=== PATIENT | female | born 1935 | race Caucasian/White ===

== ENCOUNTER 2017-09-25 18:58 | Inpatient (IN) ==
[2017-09-25] MEDS ORDERED: 0.9 % Sodium Chloride 1,000 ML IVC ONE (19:45)
[2017-09-25] MEDS ORDERED: Isovue-370 500 ML INFUS..BTL IV ONE (19:50)
--- NOTE | 2017-09-25 19:53 | Emergency Department Note ---
Disposition Clinical Impression: Cholecystitis Abdominal pain Qualifiers: Abdominal location: upper abdomen, unspecified Qualified Code(s): R10.10 - Upper abdominal pain, unspecified Leukocytosis Qualifiers: Leukocytosis type: unspecified Qualified Code(s): D72.829 - Elevated white blood cell count, unspecified Disposition: Admitted As Inpatient Condition: Undetermined Referrals: NONE,PCP [Primary Care Provider] - Forms: ED Satisfaction Letter Time of Disposition: 23:19 General Adult HPI - General Chief complaint: ED Nausea/Vomiting/Diarrhea Stated complaint: Possible Bowel Obstruction Time Seen by Provider: 09/25/17 19:38 Source: patient, family Mode of arrival: ambulatory Limitations: no limitations Nursing Notes Reviewed: Yes Vital Signs Reviewed: Yes - History of Present Illness HPI Narrative: 82-year-old female no previous medical history arrives to the emergency department with concern for possible bowel obstruction. The patient has a history of ventral hernia as well as umbilical hernia and states that over the course the past 2 days she has been experiencing midline worsening pain and states that she is having a large amount of pain associated with it with nausea , vomiting. Yesterday she was passing gas but she is no longer passing gas at this time. Patient states this also happened a few days prior to that. But it resolved spontaneously. The patient denies any other specific complaints at this time. She is tachycardic with a heart rate that is ranging from 105 into the 150s. Patient has no shortness of breath. The patient does have some palpitation sensation. She denies any previous history of any cardiac abnormalities in the past. She is resting comfortably in the room and is alert and oriented. Pain Scale: 0 - Related Data Home Medications Medication Instructions Recorded Confirmed Aspirin [Lo-Dose Aspirin EC] 81 mg PO DAILY 11/16/16 11/16/16 Previous Rx's Medication Instructions Recorded OxyCODONE/APAP 5/325 [Percocet 1 each PO Q6HR PRN #50 tablet 11/16/16 5/325 MG] Allergies Allergy/AdvReac Type Severity Reaction Status Date / Time codeine AdvReac Chest Pain Verified 11/16/16 08:51 All systems ED: reviewed and negative except as stated. Constitutional: Reports: weakness. Denies: fever, chills ENT ED: Denies: congestion Cardiovascular: Reports: palpitations. Denies: chest pain Respiratory: Denies: dyspnea Gastrointestinal: Reports: abdominal pain, nausea, vomiting, constipation. Denies: diarrhea, hematemesis, melena, hematochezia Neurological: Denies: headache, confusion Past Medical History - Past Medical History Attestation: Yes The following information was validated with the patient. Source: patient Medical history: Reports: cancer Surgical history: Reports: non-contributory Psychiatric history: Reports: no psych history - Social History Smoking Status: Never smoker Smokeless Tobacco Status: No Alcohol use: Reports: rarely Drug use: Reports: none Physical Exam - General Limitations: no limitations General appearance: alert, in no apparent distress - Head Head exam: atraumatic, normocephalic, normal inspection - Eye Eye exam: Present: normal appearance, PERRL, EOMI - ENT ENT exam: normal exam, normal oropharynx, mucous membranes moist - Neck Neck exam: Present: normal inspection, full ROM, trachea midline - Chest Chest inspection: Present: normal inspection, symmetric chest wall rise - Respiratory Respiratory exam: Present: normal lung sounds bilaterally - Cardiovascular Cardiovascular exam: Present: tachycardia, irregular rhythm, normal heart sounds - Abdominal Exam Abdominal exam: Present: soft, tenderness (Periumbilical), hernia. Absent: distention, guarding, rebound, rigidity, Keene's sign, Rovsing's sign, tenderness at McBurney's Point - Extremities Exam Extremities exam: Present: normal inspection, full ROM. Absent: tenderness, pedal edema - Neurological Exam Neurological exam: Present: alert, oriented X3 - Skin Skin exam: Present: warm, dry, intact, normal color Course Vital Signs Temperature 98.6 F 09/25/17 18:59 Pulse Rate 155 09/25/17 18:59 Respiratory Rate 18 09/25/17 18:59 Blood Pressure 142/71 09/25/17 18:59 O2 Sat by Pulse Oximetry 96 09/25/17 18:59 Temperature 98.6 F 09/25/17 18:59 Pulse Rate 114 09/25/17 22:39 Respiratory Rate 22 09/25/17 22:39 Blood Pressure 123/76 09/25/17 22:39 O2 Sat by Pulse Oximetry 97 09/25/17 22:39 Oxygen Delivery Oxygen Delivery Room Air Medical Decision Making - Lab Data Result diagrams: 09/25/17 20:20 09/25/17 20:20 Lab Results 09/25/17 09/25/1718 Range/Units 19:57 20:20 20:20 WBC 24.3 H (4.3-11.1) K/mcL RBC 4.83 (3.82-4.97) M/mcL Hgb 13.9 (11.5-15.4) g/dL Hct 41.8 (35.3-44.9) % MCV 86.5 (83.0-100.0) fL MCH 28.8 (28.0-33.3) pg MCHC 33.3 (31.6-35.5) g/dL RDW 13.5 (11.5-14.5) % Plt Count 169 (140-400) K/mcL MPV 10.4 (9.4-12.4) fL Immature Gran % 1.2 (0-4) % Seg Neutrophils % 84.7 % Lymphocytes % 6.3 % Monocytes % 7.6 % Eosinophils % 0.0 % Basophils % 0.2 % Neutrophils # 20.6 H (1.6-8.9) K/mcL Lymphocytes # 1.5 (0.6-4.6) K/mcL Monocytes # 1.8 H (0.0-1.3) K/mcL Eosinophils # 0.0 (0.0-0.6) K/mcL Basophils # 0.0 (0.0-0.2) K/mcL Sodium 131 L (136-145) mEq/L Potassium 3.8 (3.5-5.1) mEq/L Chloride 96 L (98-107) mEq/L Carbon Dioxide 22 L (23-29) mEq/L BUN 16 (8-23) mg/dL Creatinine 0.98 (0.60-1.20) mg/dL Est GFR ( Amer) > 60 (> 60) Est GFR (Non-Af Amer) 55 L (> 60) BUN/Creatinine Ratio 16 (6-26) Glucose 152 H (70-105) mg/dL Calculated Osmolality 276 L (280-300) Lactic Acid (0.5-2.2) mmol/L Calcium 9.2 (8.6-10.3) mg/dL Total Bilirubin 1.6 H (0.3-1.0) mg/dL Direct Bilirubin 0.5 H (0.0-0.2) mg/dL Indirect Bilirubin 1.1 (0.0-1.2) mg/dL AST 12 L (13-39) Units/L ALT 15 (7-52) Units/L Alkaline Phosphatase 105 H (34-104) Units/L Troponin I (< 0.04) ng/mL Serum Total Protein 6.8 (6.4-8.9) g/dL Albumin 3.8 (3.5-5.7) g/dL Globulin 3.0 (2.4-3.5) g/dL Albumin/Globulin Ratio 1.3 (1.1-2.2) Lipase < 3 L (11-82) Units/L Urine Color Yellow (Yellow) Urine Clarity Clear (Clear) Urine pH 6.0 (5.0-8.0) pH Units Ur Specific [place] 1.016 (1.010-1.025) Urine Protein Trace (Neg-Trace) mg/dL Urine Glucose (UA) Normal (Normal) mg/dL Urine Ketones Negative (Negative) mg/dL Urine Blood Negative (Negative) Urine Nitrite Negative (Negative) Urine Bilirubin Negative (Negative) Urine Urobilinogen Normal (Normal) mg/dL Ur Leukocyte Esterase Moderate H (Negative) Urine Microscopic RBC 3-5 H (0-3) per hpf Urine Microscopic WBC 5-15 H (0-3) per hpf Ur Squamous Epith Cells Moderate H (None-Few) per lpf Urine Bacteria None Seen (None-Few) per hpf Hyaline Casts None Seen (None-Few) per lpf Ur Culture Indicated? YES A (NO) 09/25/17 09/25/17 Range/Units 20:20 21:20 WBC (4.3-11.1) K/mcL RBC (3.82-4.97) M/mcL Hgb (11.5-15.4) g/dL Hct (35.3-44.9) % MCV (83.0-100.0) fL MCH (28.0-33.3) pg MCHC (31.6-35.5) g/dL RDW (11.5-14.5) % Plt Count (140-400) K/mcL MPV (9.4-12.4) fL Immature Gran % (0-4) % Seg Neutrophils % % Lymphocytes % % Monocytes % % Eosinophils % % Basophils % % Neutrophils # (1.6-8.9) K/mcL Lymphocytes # (0.6-4.6) K/mcL Monocytes # (0.0-1.3) K/mcL Eosinophils # (0.0-0.6) K/mcL Basophils # (0.0-0.2) K/mcL Sodium (136-145) mEq/L Potassium (3.5-5.1) mEq/L Chloride (98-107) mEq/L Carbon Dioxide (23-29) mEq/L BUN (8-23) mg/dL Creatinine (0.60-1.20) mg/dL Est GFR ( Amer) (> 60) Est GFR (Non-Af Amer) (> 60) BUN/Creatinine Ratio (6-26) Glucose (70-105) mg/dL Calculated Osmolality (280-300) Lactic Acid 2.3 H (0.5-2.2) mmol/L Calcium (8.6-10.3) mg/dL Total Bilirubin (0.3-1.0) mg/dL Direct Bilirubin (0.0-0.2) mg/dL Indirect Bilirubin (0.0-1.2) mg/dL AST (13-39) Units/L ALT (7-52) Units/L Alkaline Phosphatase (34-104) Units/L Troponin I 0.03 (< 0.04) ng/mL Serum Total Protein (6.4-8.9) g/dL Albumin (3.5-5.7) g/dL Globulin (2.4-3.5) g/dL Albumin/Globulin Ratio (1.1-2.2) Lipase (11-82) Units/L Urine Color (Yellow) Urine Clarity (Clear) Urine pH (5.0-8.0) pH Units Ur Specific [place] (1.010-1.025) Urine Protein (Neg-Trace) mg/dL Urine Glucose (UA) (Normal) mg/dL Urine Ketones (Negative) mg/dL Urine Blood (Negative) Urine Nitrite (Negative) Urine Bilirubin (Negative) Urine Urobilinogen (Normal) mg/dL Ur Leukocyte Esterase (Negative) Urine Microscopic RBC (0-3) per hpf Urine Microscopic WBC (0-3) per hpf Ur Squamous Epith Cells (None-Few) per lpf Urine Bacteria (None-Few) per hpf Hyaline Casts (None-Few) per lpf Ur Culture Indicated? (NO) - EKG Data EKG #1 EKG attestation: Yes I reviewed and interpreted this EKG. EKG results narrative: Heart rate 125 beats for minute. Patient has a regular rhythm that is intermittent and in atrial fibrillation into normal sinus rhythm. No ST elevation or ST depression noted. These are new changes noted from EKG of from 11/16/2016.
[2017-09-25 20:22] LABS: Bilirubin,Urine Negative (Negative); Blood,Urine Negative (Negative); Clarity,Urine Clear (Clear); Color,Urine Yellow (Yellow); Glucose,Urine (UA) Normal (Normal); Ketones,Urine Negative (Negative); Leukocyte Esterase,Urine Moderate (Negative); Nitrite,Urine Negative (Negative); Protein,Urine Trace mg/dL (Neg-Trace); Specific Gravity,Urine 1.016 (1.010-1.025); Urobilinogen,Urine Normal (Normal)
[2017-09-25 20:25] LABS: Bacteria,Urine None Seen per hpf (None-Few); Hyaline Casts,Urine None Seen per lpf (None-Few); Squamous Epithelial Cell,Urine Moderate per lpf (None-Few)
[2017-09-25 20:34] LABS: Basophils % 0.2 %; Hematocrit 41.8 % (35.3-44.9); Hemoglobin 13.9 g/dL (11.5-15.4); Immature Granulocytes % 1.2 % (0-4); Lymphocytes # 1.5 K/mcL (0.6-4.6); Lymphocytes % 6.3 %; Mean Corpuscular HGB Conc 33.3 g/dL (31.6-35.5); Mean Corpuscular Hemoglobin 28.8 pg (28.0-33.3); Mean Corpuscular Volume 86.5 fL (83.0-100.0); Mean Platelet Volume 10.4 fL (9.4-12.4); Monocytes # 1.8 K/mcL (0.0-1.3); Monocytes % 7.6 %; Neutrophils # 20.6 K/mcL (1.6-8.9); Platelet Count 169 K/mcL (140-400); Red Blood Count 4.83 M/mcL (3.82-4.97); Red Cell Distribution Width 13.5 % (11.5-14.5); Segmented Neutrophils % 84.7 %
[2017-09-25 20:55] LABS: Alanine Aminotransferase 15 Units/L (7-52); Albumin 3.8 g/dL (3.5-5.7); Albumin/Globulin Ratio 1.3 (1.1-2.2); Alkaline Phosphatase 105 Units/L (34-104); Aspartate Amino Transferase 12 Units/L (13-39); BUN/Creatinine Ratio 16 (6-26); Bilirubin,Direct 0.5 mg/dL (0.0-0.2); Bilirubin,Indirect 1.1 mg/dL (0.0-1.2); Bilirubin,Total 1.6 mg/dL (0.3-1.0); Blood Urea Nitrogen 16 mg/dL (8-23); Calcium 9.2 mg/dL (8.6-10.3); Carbon Dioxide 22 mEq/L (23-29); Chloride 96 mEq/L (98-107); Glucose 152 mg/dL (70-105); Lipase < 3 Units/L (11-82); Osmolality,Calculated 276 (280-300); Potassium 3.8 mEq/L (3.5-5.1); Sodium 131 mEq/L (136-145); Total Protein 6.8 g/dL (6.4-8.9); eGFR For African Americans > 60 (> 60); eGFR For Non-African Americans 55 (> 60)
--- NOTE | 2017-09-25 22:14 | Emergency Department Note ---
START Narrative - START START: I examined this patient and my medical decision-making was reviewed with the Resident Physician. I agree with the documented findings, disposition and treatment plan as described except to the extent set forth below. 82-year-old female presents emergency room for abdominal pain. Started yesterday. Concerns for possible bowel obstruction. Decrease flatus and bowel movements. She is about a white count elevation here in the ER. The ventral region. She has a previous ventral hernia repair. We will do a CT abdomen and pelvis with IV and oral contrast to assess for possible bowel obstruction versus previous hernia issues. Disposition is likely admission but pending at this time based on her CT. Her previous abdominal surgeries or many years ago.
[2017-09-25] MEDS ORDERED: Piperacillin/Tazobactam 3.375 GM in 0.9 % Sodium Chloride Mini Bag 100 ML IVPB ONE (22:24)
[2017-09-25] MEDS ORDERED: Naloxone 0.4 MG/ML INJ IVP PRN (23:21)
[2017-09-25] MEDS ORDERED: Ondansetron 4 MG/2 ML VIAL IVP PRN (23:22)
--- NOTE | 2017-09-25 23:25 | Internal Med History&Physical ---
Date of Encounter: 09/25/17 Time of Encounter: 23:23 Internal Medicine - H&P: HPI Chief complaint: Abdominal pain Admitted From: Emergency Dept Plans for Post Hospital Care: Home History of present illness: Ms. 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 Pain is worse with movement. No association with food. Reports chills but no fever. When she presented to the ED she was noted to be tachycardic and an EKG was concerning for A. fib however when I looked at the EKG I do see P waves. Patient's laboratory workup shows leukocytosis with mild elevated bilirubin. Urinalysis was concerning for UTI. CT abdomen and pelvis showed findings of acute cholecystitis. Surgery were contacted by the ED and will see the patient in-house. The patient was given IV fluids and Zosyn in the ED. Denies any headache, blurry vision, chest pain, shortness breath, diarrhea, constipation, neurological symptoms. Past Med Surg Social Fam HX - Past Medical History Medical history: cancer Additional medical history: eye CA Psychiatric history: no psych history - Past Surgical History Surgical History: non-contributory Additional surgical history: right eye removal d/t melanoma. right wrist - Social History Smoking Status: Never smoker Smokeless Tobacco Status: No Alcohol use: rarely Drug use: none Internal Medicine - H&P: Meds Aspirin [Lo-Dose Aspirin EC] 81 mg PO DAILY 11/16/16 [History] OxyCODONE/APAP 5/325 [Percocet 5/325 MG] 1 each PO Q6HR PRN #50 tablet 11/16/16 [Rx] 3 Allergy/AdvReac Type Severity Reaction Status Date / Time codeine AdvReac Chest Pain Verified 11/16/16 08:51 All Systems PM: A 10-system review of systems was performed and is negative for pertinent findings except as documented above in the HPI. Review of systems: All systems reviewed are negative except as mentioned above - Constitutional Vitals: Temp Pulse Resp BP Pulse Ox 98.6 F 114 22 123/76 97 09/25/17 18:59 09/25/17 22:39 09/25/17 22:39 09/25/17 22:39 09/25/17 22:39 Exam: GEN: NAD HEENT: AT, NC, No cyanosis, oral mucosa is moist, No JVD Lymphatics: No lymphadenoapthy Eyes: Extrocular muscles intact, anicteric CVS:RRR. S1, S2, No m/r/g RESP: CTAB ABD: Soft, right upper quadrant tenderness and epigastric tenderness. No rebound, ND, +BS EXT: No edema, No rashes, 2+ DP NEURO: Nonfocal, CN II-XII intact, No focal motor or sensory deficits Psych: Cooperative, Not anxious or depressed Internal Med - H&P Results - Labs CBC & Chem 7: 09/25/17 20:20 09/25/17 20:20 Labs: Short CBC 09/25/17 Range/Units 20:20 WBC 24.3 H (4.3-11.1) K/mcL Hgb 13.9 (11.5-15.4) g/dL Hct 41.8 (35.3-44.9) % Plt Count 169 (140-400) K/mcL Neutrophils # 20.6 H (1.6-8.9) K/mcL BMP 09/25/17 20:20 Sodium 131 L Potassium 3.8 Chloride 96 L Carbon Dioxide 22 L BUN 16 Creatinine 0.98 Glucose 152 H Calcium 9.2 Cardiac Enzymes 09/25/17 Range/Units 20:20 Troponin I 0.03 (< 0.04) ng/mL Liver Function 09/25/17 Range/Units 20:20 Total Bilirubin 1.6 H (0.3-1.0) mg/dL Direct Bilirubin 0.5 H (0.0-0.2) mg/dL AST 12 L (13-39) Units/L ALT 15 (7-52) Units/L Alkaline Phosphatase 105 H (34-104) Units/L Albumin 3.8 (3.5-5.7) g/dL Urine 09/25/17 Range/Units 19:57 Urine Color Yellow (Yellow) Urine Clarity Clear (Clear) Urine pH 6.0 (5.0-8.0) pH Units Ur Specific [place] 1.016 (1.010-1.025) Urine Protein Trace (Neg-Trace) mg/dL Urine Glucose (UA) Normal (Normal) mg/dL - Impressions ITS Impressions Abdomen/Pelvis CT 09/25/17 22:00 IMPRESSION: 1. Multiple gallstones. Mild gallbladder wall thickening and pericholecystic edema. Findings are suspicious for cholecystitis. 2. Hiatal hernia. D/ / 09/25/2017 23:02:42 Lico Chavis MD / gregoria Interpreting Provider: Lico Chavis MD - Assessment and plan (1) Acute cholecystitis Current Visit: Yes Status: Acute Assessment and plan: Admit to hospitalist with a consult surgery. Nothing by mouth after midnight. We will put the patient on IV fluids and Zosyn. Pain control. Antiemetics. (2) UTI (urinary tract infection) Current Visit: Yes Status: Acute Assessment and plan: Zosyn should cover. Follow up on cultures. IV fluids started. Qualifiers: Urinary tract infection type: site unspecified Hematuria presence: without hematuria Qualified Code(s): N39.0 - Urinary tract infection, site not specified (3) Tachycardia Current Visit: Yes Status: Acute Assessment and plan: There is a worry about A. fib in the ED. I will not exactly sure that she is in A. fib. I do see P waves. She does have irregular beat however. We will check TSH and magnesium level as those were not checked in the ED. Check an echocardiogram. (4) DVT prophylaxis Current Visit: Yes Status: Acute Assessment and plan: Heparin subcutaneous - Time Spent With Patient Total time spent is greater than 50% in coordination of care (as documented) at patient's floor/unit and/or counseling patient:
[2017-09-25 23:53] LABS: INR 1.2; Prothrombin Time 12.9 Seconds (9.4-12.1)
[2017-09-25 23:57] LABS: Magnesium 1.9 mg/dL (1.6-2.6)
[2017-09-26] MEDS: Piperacillin/Tazobactam 3.375 GM in 0.9 % Sodium Chloride Mini Bag 100 ML IVPB SCH ×4 (00:55→23:37)
[2017-09-26] MEDS: *HR* Heparin 5,000 UNIT/ML VIAL SQ SCH ×3 (01:01→16:43)
[2017-09-26] MEDS: 0.9 % Sodium Chloride 1,000 ML IVC SCH ×3 (01:01→23:33)
[2017-09-26] MEDS: Acetaminophen 325 MG TABLET PO PRN ×3 (01:01→16:42)
[2017-09-26 01:22] LABS: Basophils % 0.2 %; Hematocrit 39.5 % (35.3-44.9); Hemoglobin 13.3 g/dL (11.5-15.4); Immature Granulocytes % 1.1 % (0-4); Lymphocytes # 1.1 K/mcL (0.6-4.6); Lymphocytes % 4.7 %; Mean Corpuscular HGB Conc 33.7 g/dL (31.6-35.5); Mean Corpuscular Hemoglobin 28.9 pg (28.0-33.3); Mean Corpuscular Volume 85.9 fL (83.0-100.0); Mean Platelet Volume 10.1 fL (9.4-12.4); Monocytes # 1.7 K/mcL (0.0-1.3); Monocytes % 7.7 %; Neutrophils # 19.4 K/mcL (1.6-8.9); Platelet Count 143 K/mcL (140-400); Red Cell Distribution Width 13.5 % (11.5-14.5); Segmented Neutrophils % 86.3 %
[2017-09-26 01:44] LABS: Alanine Aminotransferase 15 Units/L (7-52); Albumin 3.5 g/dL (3.5-5.7); Albumin/Globulin Ratio 1.3 (1.1-2.2); Alkaline Phosphatase 102 Units/L (34-104); Aspartate Amino Transferase 12 Units/L (13-39); BUN/Creatinine Ratio 15 (6-26); Bilirubin,Total 2.1 mg/dL (0.3-1.0); Blood Urea Nitrogen 12 mg/dL (8-23); Calcium 8.9 mg/dL (8.6-10.3); Carbon Dioxide 22 mEq/L (23-29); Chloride 99 mEq/L (98-107); Globulin 2.8 g/dL (2.4-3.5); Glucose 157 mg/dL (70-105); Magnesium 1.8 mg/dL (1.6-2.6); Osmolality,Calculated 275 (280-300); Potassium 3.7 mEq/L (3.5-5.1); Sodium 131 mEq/L (136-145); Total Protein 6.3 g/dL (6.4-8.9); eGFR For African Americans > 60 (> 60); eGFR For Non-African Americans > 60 (> 60)
[2017-09-26 01:56] LABS: Thyroid Stimulating Hormone 1.097 mcIU/mL (0.340-5.600)
--- NOTE | 2017-09-26 14:03 | Event Note ---
Date of Encounter: 09/26/17 Time of Encounter: 14:00 - Cardiology Event Note Asked by Hospitalist team to review ECG. 12 lead ECG reviewed and machine indicated afib, however did show SR and what appears to be brief episode of mutifocal atrial tahcycardia (reviewed with Dr. Modi as well). Baseline past ECG SR. No apparent afib hx. Tele reviewed and shows SR. ECHO showed SR. Echo results: Impressions: LVEF 65%. Normal LV chamber size, wall thickness and function. Mild left ventricular diastolic dysfunction. Normal right ventricular structure and function. Mild pulmonary hypertension. No significant valvular dysfunction. Left Ventricular Wall Motion: Rest Echo Findings All wall segments showed normal motion. Findings: Study Quality * Technically adequate exam. ECG Findings * Normal sinus rhythm. Left Atrium * Mildly dilated left atrium. Right Atrium * Normal right atrial size.
--- NOTE | 2017-09-26 14:15 | Internal Med Progress Note ---
Date of Encounter: 09/26/17 Time of Encounter: 14:14 - Assessment and plan (1) Acute cholecystitis Current Visit: Yes Status: Acute Assessment and plan: Presented with epigastric pain, abdominal bloating, and/V with bilious vomiting CT abdomen and pelvis reveals multiple gallstones. Mild cold lateral wall thickening and pericholecystic edema suspicious for cholecystitis Continued to report mild abdominal pain, nausea and vomiting of subsided with npo Dr Hinojosa seeing in consultation-plan for cholecystectomy either this evening or tomorrow See note regarding suspected atrial fibrillation Continue current medication regimen and antiemetics Continue Zosyn Continue IVF (2) UTI (urinary tract infection) Current Visit: Yes Status: Acute Assessment and plan: Patient medically UTI UA shows moderate leukocyte esterase Urine culture sent-pending Currently on Zosyn, continue Continue IVF [place] aBX as appropriate Qualifiers: Urinary tract infection type: site unspecified Hematuria presence: without hematuria Qualified Code(s): N39.0 - Urinary tract infection, site not specified (3) Tachycardia Current Visit: Yes Status: Resolved Assessment and plan: There is a worry about A. fib in the ED I have personally reviewed the EKG and do not feel the patient is in atrial fibrillation TTE reveals normal sinus rhythm, no atrial enlargement. No prior history of A. fib No evidence of A. fib noted per review of telemetry D/W cardiology per their review of the believed to be multifocal atrial tachycardia (4) Hyponatremia Current Visit: Yes Status: Acute Assessment and plan: 2/2 N/V with cholecystitis Stable, monitor labs daily (5) DVT prophylaxis Current Visit: Yes Status: Acute Assessment and plan: continue Heparin subcutaneous - Time Spent With Patient Total time spent is greater than 50% in coordination of care (as documented) at patient's floor/unit and/or counseling patient: 25 - 35 minutes - Subjective Interval history: Patient seen and examined at bedside today. No acute changes overnight. Continue to report some mild abdominal discomfort. Denies any nausea/vomiting. Remains nothing by mouth. - Constitutional Vitals: Temp Pulse Resp BP Pulse Ox 98.8 F 86 17 101/65 96 09/26/17 11:34 09/26/17 11:34 09/26/17 11:34 09/26/17 11:34 09/26/17 11:34 General appearance: Present: A&O X 3, no acute distress - Head Head exam: Present: atraumatic, normocephalic - Eye Eye exam: Present: PERRL, conjuntiva pink, sclera anicteric Pupils: Present: PERRL - Neck Neck exam general surgery: Present: supple, trachea midline. Absent: lymphadenopathy - Respiratory Respiratory exam: Present: CTAB. Absent: accessory muscle use, rales, rhonchi, wheezes - Cardiovascular Cardiovascular exam: Present: RRR, +S1, +S2. Absent: diastolic murmur, gallop, rubs, systolic murmur - GI/Abdominal GI/Abdominal exam: Present: normal bowel sounds, soft, no peritoneal signs. Absent: distended, tenderness - Extremities Exam Extremities exam: Present: warm, radial pulses palpable and symmetrical. Absent : calf tenderness, cyanotic, pedal edema - Neurological Exam Neurological exam: Present: CN II-XII intact, oriented X3, no focal deficits. Absent: pronater drift, facial droop, speech deficit - Skin Skin exam: Present: dry, intact Internal Medicine: Result - Labs CBC & Chem 7: 09/26/17 01:12 09/26/17 01:12 Labs: Short CBC 09/26/17 Range/Units 01:12 WBC 22.4 H (4.3-11.1) K/mcL Hgb 13.3 (11.5-15.4) g/dL Hct 39.5 (35.3-44.9) % Plt Count 143 (140-400) K/mcL Neutrophils # 19.4 H (1.6-8.9) K/mcL BMP 09/26/17 01:12 Sodium 131 L Potassium 3.7 Chloride 99 Carbon Dioxide 22 L BUN 12 Creatinine 0.79 Glucose 157 H Calcium 8.9 Liver Function 09/26/17 Range/Units 01:12 Total Bilirubin 2.1 H (0.3-1.0) mg/dL AST 12 L (13-39) Units/L ALT 15 (7-52) Units/L Alkaline Phosphatase 102 (34-104) Units/L Albumin 3.5 (3.5-5.7) g/dL - ABG Interpretation ABG results: PT/INR, D-dimer PT 12.9 Seconds (9.4-12.1) H 09/25/17 20:20 - Impressions Impressions Echocardiogram 09/26/17 23:41 Impressions: LVEF 65%. Normal LV chamber size, wall thickness and function. Mild left ventricular diastolic dysfunction. Normal right ventricular structure and function. Mild pulmonary hypertension. No significant valvular dysfunction. Left Ventricular Wall Motion: Rest Echo Findings All wall segments showed normal motion. Findings: Study Quality * Technically adequate exam. ECG Findings * Normal sinus rhythm. Left Ventricle * LVEF 65%. * Normal LV chamber size, wall thickness and function. * Mild left ventricular diastolic dysfunction. Right Ventricle * Normal right ventricular structure and function. Left Atrium * Mildly dilated left atrium. Right Atrium * Normal right atrial size. Aortic Valve * Trileaflet aortic valve with normal function. * No aortic regurgitation. * No aortic stenosis. Mitral Valve * Normal mitral valve structure and function. * No mitral regurgitation. * No mitral stenosis. Tricuspid Valve * Normal tricuspid valve structure and function. * Trace tricuspid regurgitation. * Mild pulmonary hypertension. Pulmonic Valve * Normal pulmonic valve structure and function. * No pulmonic regurgitation. Aorta * Normally sized aortic root. Pericardium * There is a trivial pericardial effusion present. IVC * Normal IVC dimensions and inspiratory collapse. Pulmonary Artery * Normal visualized portions of the main pulmonary artery. Consult Discharge Plan - Plan Referrals: NONE,PCP [Primary Care Provider] -
--- NOTE | 2017-09-26 17:57 | General Surgery Consult Note ---
Date of Encounter: 09/26/17 Time of Encounter: 17:55 History of Present Illness Reason for consult: abdominal pain (acute calculus cholecystitis) Requesting physician: Dc Green History of present illness: General Surgery - This is a delayed dictation 82 yo referred for surgical evaluation after presenting to the [facility] emergency department with a several-day history of epigastric abdominal pain, nausea and bilious vomiting. The patient's , was at bedside, he indicates the patient's symptoms were in excess of 7 days in duration. The patient's daughters finally prevailed upon the patient to present to the emergency department for further evaluation and treatment. The patient demonstrated tachycardia and EKG changes suggestive of atrial fibrillation. The patient was severely dehydrated. Evaluation included CT abdomen/pelvis which showed gallbladder wall thickening, pericholecystic edema and fluid and multiple gallstones. On physical examination the patient was exquisitely tender in the right upper quadrant. A significant leukocytosis, 24.3 with 20.6 % neutrophils and 1.8 monocytes was present. Electrolytes were notable for hyponatremia, hypochloremia and acidosis evidenced by a low bicarbonate and lactic acid of 2.3. BUN and creatinine were normal. Bilirubin was 1.6, with alkaline phosphatase 105. AST, ALT, and lipase were within normal limits. Due to the EKG irregularities patient was admitted by the hospitalist service and surgical consultation placed with me. 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 A ventral hernia repair approximately 1970. The patient has no significant medical history as she does not see a physician regularly. Medications: Aspirin 81 mg daily Allergies: Codeine patient describes taking Tylenol with codeine in the remote past with resultant chest pain Social history: Patient is G8, P7 delivering all via normal vaginal delivery; she is and lives at home with her . She has never smoked, she admits to a rare alcoholic beverage; she does not consume illicit drug. Since admission, following administration of IV fluids and IV antibiotics, the patient feels significantly improved. The abdominal pain has diminished. There has been no further nausea or vomiting. On physical examination: Elderly, age-appropriate female in no acute distress. The patient was febrile, 100.7 on presentation to the emergency department; she is presently 100.3. Pulse is regular ranging 78-97. Respirations 17, blood pressure currently 149/79. 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 Lungs: Clear to auscultation, no obvious abdominal pain with deep inspiration Cardiac: Regular rate, no appreciable murmurs. Cardiac evaluation completed just prior to this dictation indicates patient is stable with no evidence of atrial fibrillation. Rather the patient had multifocal atrial tachycardia alighted to her acute abdominal symptoms and dehydration. Echocardiogram shows left ventricular ejection fraction of 65% and mild left ventricular diastolic dysfunction. Abdomen: Soft, nontender with transverse surgical scar in the location of the patient's umbilicus (umbilicus is absent). No obvious hepatosplenomegaly, intra-abdominal masses, peritoneal signs or rebound. Active bowel sounds. Extremities: No obvious clubbing, cyanosis, or edema. CT abdomen/pelvis was reviewed with [place] [facility]. Laboratories: Repeat this a.m. - white count 22.4, hemoglobin 13.3, hematocrit 39.5, platelet count 143,000. Neutrophils 19.4, monocytes 1.7 Sodium 131, potassium 3.7, bicarbonate 22, BUN 12, creatinine 0.79. Glucose 157 AST 12, ALT 15, alkaline phosphatase 102; bilirubin 2.1 Troponin 0.03 (cardiac evaluation deems patient cardiac stable with no evidence of atrial fibrillation, myocardial ischemia or other cardiac abnormalities) Urinalysis: PH 6.0, specific gravity 1.016; moderate leukocyte esterase, 3-5 RBC/hpf; 5-15 WBC/hpf, moderate squamous epithelial cells Impression: 82-year-old female, admitted after presenting to [facility] ED with epigastric and right upper quadrant abdominal pain, nausea and vomiting. Symptoms been ongoing for approximately a week with significant dehydration resultant cardiac dysrhythmia. The dehydration has been addressed. Clinical findings and CT are consistent with acute calculous cholecystitis. Surgery is recommended and has been discussed in detail with the patient, her , and attendant family. The prior history of a ventral hernia repair approximately 45 years ago may interfere with laparoscopic cholecystectomy making an open cholecystectomy necessary. Risks of surgery include hemorrhage, infection, intra-abdominal abscess, bile leak, injury to adjacent ducts, vessels, organs, and bowel. Other risks such as cardiac dysrhythmia, DE, and pulmonary risks such as pneumonia, respiratory failure have also been discussed. Treatment options include surgery as recommended versus continued expectant follow-up with considerable risk of recurrent symptoms and acute illness. The patient and her family have expressed understanding and wished to proceed with surgery. Plan: Surgery is planned for the a.m. Will allow clear liquids this evening as long as there is no recurrent abdominal pain, nausea or vomiting. The patient will be NPO after 12 midnight except for medications. Past Med Surg Social Fam HX - Past Medical History Medical history: cancer Additional medical history: eye CA Psychiatric history: no psych history - Past Surgical History Surgical History: non-contributory Additional surgical history: right eye removal d/t melanoma. right wrist - Social History Smoking Status: Never smoker Smokeless Tobacco Status: No Alcohol use: rarely Drug use: none - Family History Mother Living Status: Age at : 84 Cause of : DE Hx Family Cardiac Disorders: Yes (DE) Hx Family Endocrine Disorder: Yes (DM) Hx Family HEENT Disorders: Yes (Macular degeneration) Father Living Status: Age at : 64 Cause of : Emphysema Hx Family Cardiac Disorders: No Hx Family Respiratory Disorders: Yes (Emphysema) Hx Family Cancer: No Hx Family GI Disorders: No Hx Family Genitourinary Disorders: No Hx Family Endocrine Disorder: No Hx Family Musculoskeletal Disorders: No Hx Family Neuromuscular Disorders: No Hx Family Neurologic Disorders: No Hx Family HEENT Disorders: No Hx Family Autoimmune Disorders: No Hx Family Reproductive Disorders: No Hx Family Psychosocial Disorders: No Hx Family Medical Disorders: No Medications and Allergies No Known Home Drugs 09/26/17 [History] 3 Allergy/AdvReac Type Severity Reaction Status Date / Time codeine AdvReac Chest Pain Verified 11/16/16 08:51 Review of Systems All systems PM: The remainder of the systems were reviewed and are negative General Surgery Exam Initial Vital Signs Temp Pulse Resp BP Pulse Ox 98.6 F 155 18 142/71 96 09/25/17 18:59 09/25/17 18:59 09/25/17 18:59 09/25/17 18:59 09/25/17 18:59 Exam Initial Vital Signs Temp Pulse Resp BP Pulse Ox 98.6 F 155 18 142/71 96 09/25/17 18:59 09/25/17 18:59 09/25/17 18:59 09/25/17 18:59 09/25/17 18:59 Results - Labs 09/26/17 01:12 09/26/17 01:12 Abnormal lab results WBC 22.4 K/mcL (4.3-11.1) H 09/26/17 01:12 Neutrophils # 19.4 K/mcL (1.6-8.9) H 09/26/17 01:12 Monocytes # 1.7 K/mcL (0.0-1.3) H 09/26/17 01:12 PT 12.9 Seconds (9.4-12.1) H 09/25/17 20:20 Sodium 131 mEq/L (136-145) L 09/26/17 01:12 Carbon Dioxide 22 mEq/L (23-29) L 09/26/17 01:12 Glucose 157 mg/dL (70-105) H 09/26/17 01:12 Calculated Osmolality 275 (280-300) L 09/26/17 01:12 Total Bilirubin 2.1 mg/dL (0.3-1.0) H 09/26/17 01:12 Direct Bilirubin 0.5 mg/dL (0.0-0.2) H 09/25/17 20:20 AST 12 Units/L (13-39) L 09/26/17 01:12 Serum Total Protein 6.3 g/dL (6.4-8.9) L 09/26/17 01:12 Lipase < 3 Units/L (11-82) L 09/25/17 20:20 Ur Leukocyte Esterase Moderate (Negative) H 09/25/17 19:57 Urine Microscopic RBC 3-5 per hpf (0-3) H 09/25/17 19:57 Urine Microscopic WBC 5-15 per hpf (0-3) H 09/25/17 19:57 Ur Squamous Epith Cells Moderate per lpf (None-Few) H 09/25/17 19:57 Ur Culture Indicated? YES (NO) A 09/25/17 19:57 Diabetes panel 09/26/17 Range/Units 01:12 Sodium 131 L (136-145) mEq/L Potassium 3.7 (3.5-5.1) mEq/L Chloride 99 (98-107) mEq/L Carbon Dioxide 22 L (23-29) mEq/L BUN 12 (8-23) mg/dL Creatinine 0.79 (0.60-1.20) mg/dL Glucose 157 H (70-105) mg/dL Calcium 8.9 (8.6-10.3) mg/dL AST 12 L (13-39) Units/L ALT 15 (7-52) Units/L Alkaline Phosphatase 102 (34-104) Units/L Albumin 3.5 (3.5-5.7) g/dL Thyroid panel 09/26/17 Range/Units 01:12 TSH 1.097 (0.340-5.600) mcIU/mL Calcium panel 09/26/17 Range/Units 01:12 Calcium 8.9 (8.6-10.3) mg/dL Albumin 3.5 (3.5-5.7) g/dL Pituitary panel 09/26/17 Range/Units 01:12 Sodium 131 L (136-145) mEq/L Potassium 3.7 (3.5-5.1) mEq/L Chloride 99 (98-107) mEq/L Carbon Dioxide 22 L (23-29) mEq/L BUN 12 (8-23) mg/dL Creatinine 0.79 (0.60-1.20) mg/dL Glucose 157 H (70-105) mg/dL Calcium 8.9 (8.6-10.3) mg/dL TSH 1.097 (0.340-5.600) mcIU/mL Adrenal panel 09/26/17 Range/Units 01:12 Sodium 131 L (136-145) mEq/L Potassium 3.7 (3.5-5.1) mEq/L Chloride 99 (98-107) mEq/L Carbon Dioxide 22 L (23-29) mEq/L BUN 12 (8-23) mg/dL Creatinine 0.79 (0.60-1.20) mg/dL Glucose 157 H (70-105) mg/dL Calcium 8.9 (8.6-10.3) mg/dL Total Bilirubin 2.1 H (0.3-1.0) mg/dL AST 12 L (13-39) Units/L ALT 15 (7-52) Units/L Alkaline Phosphatase 102 (34-104) Units/L Albumin 3.5 (3.5-5.7) g/dL All other labs normal. Consult Discharge Plan - Plan Referrals: NONE,PCP [Primary Care Provider] -
--- NOTE | 2017-09-26 18:36 | Electrocardiograph Report ---
[address] [place] [address] Test Date: 2017-09-25 Pat Name: Marika Eddy Department: 103 Room: 3B44 Gender: F Property Claim Rep: LRShy [id number] Requested By: Dc Green Order Number: [id number] Reading MD: Isaías oMdi Measurements Intervals [place]set Rate: 125 P: FL: 0 QRS: -7 QRSD: 90 T: -29 QT: 304 QTc: 378 Interpretive Statements ATRIAL FIBRILLATION WITH RAPID VENTRICULAR RESPONSE Electronically Signed On 09-26-2017 18:35:05 EDT by Isaías Modi
--- NOTE | 2017-09-26 21:16 | Anesthesia Evaluation PreOp ---
Date of Encounter: 09/26/17 Time of Encounter: 21:14 - Past History Planned Operation: Lap cholecystectomy, possible open Cardiac History: Other (ECHO 09/26/17 Impressions: LVEF 65%. Normal LV chamber size, wall thickness and function. Mild left ventricular diastolic dysfunction. Normal right ventricular structure and function. Mild pulmonary hypertension. No significant valvular dysfunction.) Pulmonary History: Denies Any Significant HX [employer]CTS OFFICER History: Denies Any Significant HX Other Medical History: Renal (UTI), Other (R eye melanoma s/p enucleation) Anesthesia History: No Prior Anesthetic Complications (distal radius fx, R eye enucleation, hernia repair) Alcohol Use: rarely Drug use: none Medications and Allergies No Known Home Drugs 09/26/17 [History] 3 Allergy/AdvReac Type Severity Reaction Status Date / Time codeine AdvReac Chest Pain Verified 11/16/16 08:51 - Meds/Allergy Pre-op Review Medications Reviewed: Yes Allergies Reviewed: Yes Beta Blockers on Current Med List: No Anesthesia Results - Labs 09/26/17 01:12 09/26/17 01:12 - Imaging EKG: other (olive knocker note reviewed, pt EKG showed sinus tachycardia) Anesthesia Exam Vital Signs/O2 Sat, Most Current Temp Pulse Resp BP Pulse Ox 99.3 F 70 16 107/65 96 09/26/17 18:58 09/26/17 18:58 09/26/17 18:58 09/26/17 18:58 09/26/17 18:58 Weight: 76kg NPO (# of Hours): >8 - HEENT Pupil (Motor): EOMI Mallampati: II Teeth: Poor dentition Oral Opening: Greater than 3 - [employer] OFFICER LOC: Oriented [employer] OFF[employer]ER Motor: Normal RUE, Normal LUE, Normal RLE, Normal LLE, Normal Face [employer]ER Sensory: Normal: RUE, LUE, RLE, LLE, Face - Cardiac Rhythm: Regular - Pulmonary Breath Sounds: bilateral Clear Respiratory Effort: Symmetrical Anesthesia Assess/Plan ASA Score: 2 Modified Toñito Scale for Level of Consciousness: Cooperative, oriented, and tranquil Anesthetic Plan: General Monitoring Plan: Standard Monitors Recovery Plan: PACU
[2017-09-27] MEDS ORDERED: *HR* Metoprolol 5 MG/5 ML VIAL IVP ONE (04:44)
[2017-09-27] MEDS ORDERED: 0.9 % Sodium Chloride 500 ML IVC ONE (06:09)
--- NOTE | 2017-09-27 06:55 | Event Note ---
Date of Encounter: 09/27/17 Time of Encounter: 04:30 Patient's heart rate has slowly been rising overnight but now has been jumping between the 120s to 140s. Blood pressures remained stable at 147/85 and patient has been resting comfortably without pain, shortness of breath or palpitations. EKG was obtained which showed a heart rate of 120 and sinus tachycardia, t-wave inversion in the anterior and inferior leads were unchanged from old EKG. Internal medicine progress note states that they reviewed previous EKG with cardiology and believes that she is having episodes of multifocal atrial tachycardia not a fib. 5mg of Lopressor was given. 500ml bolus of NS was started. Labs for Mg and K were drawn and are pending.
[2017-09-27 06:59] LABS: Basophils % 0.1 %; Hematocrit 36.7 % (35.3-44.9); Hemoglobin 12.2 g/dL (11.5-15.4); Immature Granulocytes % 1.8 % (0-4); Lymphocytes # 0.7 K/mcL (0.6-4.6); Lymphocytes % 3.3 %; Mean Corpuscular HGB Conc 33.2 g/dL (31.6-35.5); Mean Corpuscular Hemoglobin 28.9 pg (28.0-33.3); Monocytes # 1.5 K/mcL (0.0-1.3); Monocytes % 6.9 %; Neutrophils # 18.9 K/mcL (1.6-8.9); Platelet Count 135 K/mcL (140-400); Red Blood Count 4.22 M/mcL (3.82-4.97); Red Cell Distribution Width 13.6 % (11.5-14.5); Segmented Neutrophils % 87.9 %
[2017-09-27 07:12] LABS: BUN/Creatinine Ratio 16 (6-26); Blood Urea Nitrogen 9 mg/dL (8-23); Calcium 8.4 mg/dL (8.6-10.3); Carbon Dioxide 18 mEq/L (23-29); Chloride 105 mEq/L (98-107); Glucose 129 mg/dL (70-105); Osmolality,Calculated 280 (280-300); Potassium 3.2 mEq/L (3.5-5.1); Sodium 135 mEq/L (136-145); eGFR For African Americans > 60 (> 60); eGFR For Non-African Americans > 60 (> 60)
[2017-09-27] MEDS: Piperacillin/Tazobactam 3.375 GM in 0.9 % Sodium Chloride Mini Bag 100 ML IVPB SCH (09:00)
[2017-09-27] MEDS ORDERED: Lidocaine -MPF 2% 2 ML VIAL ONE (09:44)
[2017-09-27] MEDS ORDERED: *HR* Propofol 200 MG/20 ML VIAL IVP ONE (09:44)
[2017-09-27] MEDS ORDERED: *HR* FentaNYL (PF) 100 MCG/2 ML VIAL ONE ×2 (09:44→11:50)
[2017-09-27] MEDS ORDERED: *HR* Rocuronium Bromide 50 MG/5 ML VIAL ONE (09:44)
[2017-09-27] MEDS ORDERED: Isovue-300 50 ML VIAL IVP ONE (11:08)
[2017-09-27] MEDS ORDERED: Bupivacaine/EPI 1:200k 0.25%PF 10 ML VIAL INFILT ONE ×2 (11:08→11:48)
[2017-09-27] MEDS ORDERED: Esmolol 100 MG/10 ML VIAL IVP ONE (11:20)
[2017-09-27] MEDS ORDERED: Piperacillin/Tazobactam 3.375 GM in 0.9 % Sodium Chloride Mini Bag 100 ML IVPB SCH (11:30)
[2017-09-27] MEDS ORDERED: *HR* PHENYLEPHRINE 1,000 MCG/10 ML SYRINGE IVP ONE (11:36)
[2017-09-27] MEDS ORDERED: *HR* OxyCODONE Immed Rel 5 MG TABLET PO PRN (11:48)
[2017-09-27] MEDS ORDERED: *HR* HYDROmorphone 2 MG TABLET PO PRN (11:48)
[2017-09-27] MEDS ORDERED: Ondansetron 4 MG/2 ML VIAL IVP ONE (11:48)
[2017-09-27] MEDS ORDERED: Neostigmine Methylsulfate 3 MG/3 ML SYRINGE ONE (11:53)
[2017-09-27] MEDS ORDERED: Dexamethasone 4 MG/ML VIAL ONE (12:20)
[2017-09-27] MEDS ORDERED: Ondansetron 4 MG/2 ML VIAL ONE (12:20)
[2017-09-27] MEDS ORDERED: Ringers Solution, Lactated 500 ML IVC ONE (12:50)
--- NOTE | 2017-09-27 13:06 | Operative Note ---
Date of procedure: 09/27/17 Pre-op diagnosis: acute cholecystitis, cholelithiasis Post-op diagnosis: other (Acute gangrenous cholecystitis, cholelithiasis) Procedure: Laparoscopic cholecystectomy, intraoperative cholangiogram Implants: None Complications: None apparent Anesthesia: GETA Local Anesthetics: 0.25% Sensorcaine HCL with Epinephrine 1:200,000 SubQ (cc) ( 20 mL) Surgeon: Hemal Hinojosa Was there an assistant controller present: No Estimated blood loss (cc): 25 IV fluids (cc): 700 Specimen: gallbladder Condition: stable Disposition: PACU Procedure in Detail: The patient was brought to the operating room where she was placed supine on the procedure table. The patient was appropriately identified as to person and procedure. The accuracy of this information was confirmed by the patient and the procedure team. The patient was then intubated and anesthetized under the supervision of Dr. Dc Cardenas. Was prepped and draped in usual sterile fashion. When the abdomen was examined under anesthesia, the gallbladder was palpable below the costal margin. Due to previous ventral hernia repair the initial laparoscopic approach was placed in the right upper quadrant. Several milliliters of 0.25% bupivacaine with 1-200,000 units epinephrine was placed in the right upper anterior abdominal wall, midclavicular line. A small transverse incision was made. The abdominal wall was grasped and elevated. A 5 mm XCEL port was established. The rigid laparoscope was placed within the obturator to visualize passage through the layers of the anterior abdominal wall. When the abdominal cavity was accessed, the obturator was replaced by the rigid laparoscope, the abdomen was insufflated with gaseous carbon dioxide. There was no obvious visible injury from establishing the port. There were no significant adhesions in the area of the previous ventral hernia repair. Under direct visualization, an 11 mm port was established in the periumbilical area (the umbilicus had previously been excised). Under direct visualization, the remaining ports were placed along the right costal margin. Each port site was infiltrated with the 0.25% bupivacaine with 1-200,000 units epinephrine solution. The omentum was adherent to the gallbladder but was relatively easily peeled. The gallbladder was acutely gangrenous and tensely distended. Using a endoscopic needle, the gallbladder was aspirated of approximately 90 mL dark green bile. Permitted the gallbladder to be grasped and retracted. The hepatoduodenal ligament was dissected. The cystic duct was skeletonized and clipped near the infundibulum of the gallbladder. Via a separate percutaneous insertion site, a Taut cholangiogram catheter was introduced. The cystic duct was incised. On initial attempts I was unable to place the cholangiogram catheter into the cystic duct. With manipulation a small stone was removed from the cystic duct. This enabled placement of the cholangiogram catheter. Using C-arm fluoroscopy a cholangiogram was then completed. The hepatobiliary tree appeared grossly normal with no filling defects. There was free flow of contrast into the duodenum. Dr. Grider, [facility] , provided an intraoperative reading and described no additional pathology or abnormality. The cholangiogram catheter was removed, the cystic duct was doubly clipped and divided. The cystic artery was identified and clipped twice proximally. The cystic artery was divided with the aid of the Ethicon harmonic rosie. The gallbladder was dissected from the liver bed using the Ethicon harmonic rosie. When the gallbladder was from the liver bed it was placed in an endoscopic pouch and removed via the ventral mid abdominal port. The gallbladder was retrieved and sent to pathology. At least one stone stone was palpable within the gallbladder. The liver bed was hemorrhagic. Hemostasis was aided by application of Laurita. Once adequate hemostasis was achieved, the pneumoperitoneum was evacuated, but endoscopic instrumentation removed. The fascia of the mid normal ventral port was closed with interrupted figure-of- eight 0 Vicryl using S retractors. Skin edges of the port sites were approximated with subcuticular 4-0 Vicryl. The incisions were sealed with Dermabond dermal adhesive. The patient was taken to PACU in stable condition. Needle, sponge, and instrument counts were correct at the close of the case. Total volume of 0.25% bupivacaine with 1-200,000 units epinephrine, 20 mL.
[2017-09-27] MEDS ORDERED: Ringers Solution, Lactated 1,000 ML ONE (13:08)
--- NOTE | 2017-09-27 13:14 | Anesthesia Evaluation Post Op ---
Date of Encounter: 09/27/17 Time of Encounter: 13:13 - Vital Signs Vital Signs: Vital Signs/O2 Sat/Glucose, Most Current Temp Pulse Resp BP Pulse Ox 09/27/17 13:10 74 20 134/78 97 09/27/17 13:00 98 20 148/76 98 09/27/17 12:50 98.4 F 101 24 148/74 100 - Lungs Lungs: Clear Ascult./Percussion - Airway Airway: Non-obstructed - Cardiovascular Regular Rate, Baseline Rhythm - Mental Status Mental Status: Alert & Oriented, Answers Appropriately - Pain Pain Scale: 3 Pain Scale used: Numeric (1 - 10) - Nausea Vomiting Nausea Vomiting: Not Present - Hydration Hydration: Tolerates oral liquids, Has not voided - Discharge PostOp Status: Transfer Patient to floor
[2017-09-27] MEDS ORDERED: Naloxone 0.4 MG/ML INJ IVP PRN (14:44)
[2017-09-27] MEDS ORDERED: Ondansetron 4 MG/2 ML VIAL IVP PRN (14:44)
--- NOTE | 2017-09-27 17:12 | Internal Med Progress Note ---
Date of Encounter: 09/27/17 Time of Encounter: 17:09 - Assessment and plan (1) Acute cholecystitis Current Visit: Yes Status: Acute Assessment and plan: Presented with epigastric pain, abdominal bloating, Nausea with bilious vomiting CT abdomen and pelvis reveals multiple gallstones. Mild gallbladder wall thickening and pericholecystic edema suspicious for cholecystitis Continued to report mild abdominal pain, nausea and vomiting subsided with npo Dr Hinojosa seeing in consultation-appreciate consult underwent cholecystectomy this afternoon; gallbladder sent for pathology, final results pending Doing well postoperatively, with the exception of surgical pain patient reports abdominal pain has subsided Denies nausea or vomiting, tolerating room temperature water. At its to clear liquid diets as tolerated Continue current pain medication regimen and antiemetics PRN Continue lr (2) UTI (urinary tract infection) Current Visit: Yes Status: Acute Assessment and plan: UA shows moderate leukocyte esterase Urine culture sent-NGTD Qualifiers: Urinary tract infection type: site unspecified Hematuria presence: without hematuria Qualified Code(s): N39.0 - Urinary tract infection, site not specified (3) Tachycardia Current Visit: Yes Status: Resolved Assessment and plan: resolved (4) Hyponatremia Current Visit: Yes Status: Acute Assessment and plan: 2/2 N/V with cholecystitis Stable, continue to monitor labs daily (5) DVT prophylaxis Current Visit: Yes Status: Acute Assessment and plan: continue Heparin subcutaneous - Time Spent With Patient Total time spent is greater than 50% in coordination of care (as documented) at patient's floor/unit and/or counseling patient: 25 - 35 minutes - Subjective Interval history: Patient seen and examined at bedside today. Underwent cholecystectomy this afternoon. Denies any nausea/vomiting, tolerating clear liquid diet. - Constitutional Vitals: Temp Pulse Resp BP Pulse Ox 98.6 F 72 14 126/77 98 09/27/17 13:20 09/27/17 14:38 09/27/17 13:41 09/27/17 14:38 09/27/17 14:38 General appearance: Present: A&O X 3, no acute distress - Head Head exam: Present: atraumatic, normocephalic - Eye Eye exam: Present: PERRL, conjuntiva pink, sclera anicteric Pupils: Present: PERRL - Neck Neck exam general surgery: Present: supple, trachea midline. Absent: lymphadenopathy - Respiratory Respiratory exam: Present: CTAB. Absent: accessory muscle use, rales, rhonchi, wheezes - Cardiovascular Cardiovascular exam: Present: RRR, +S1, +S2. Absent: diastolic murmur, gallop, rubs, systolic murmur - GI/Abdominal GI/Abdominal exam: Present: soft, tenderness (mild diffuse tenderness to palpation s/p cholecystectomy. hypoactive BS, but flatus present), no peritoneal signs. Absent: distended Additional comments: laproscopic abdominal incisions present and intact. No drainage noted. - Extremities Exam Extremities exam: Present: warm, radial pulses palpable and symmetrical. Absent : calf tenderness, cyanotic, pedal edema - Neurological Exam Neurological exam: Present: CN II-XII intact, oriented X3, no focal deficits. Absent: pronater drift, facial droop, speech deficit - Skin Skin exam: Present: dry, intact Internal Medicine: Result - Labs CBC & Chem 7: 09/27/17 05:38 09/27/17 05:38 Labs: Short CBC 09/27/17 Range/Units 05:38 WBC 21.5 H (4.3-11.1) K/mcL Hgb 12.2 (11.5-15.4) g/dL Hct 36.7 (35.3-44.9) % Plt Count 135 L (140-400) K/mcL Neutrophils # 18.9 H (1.6-8.9) K/mcL BMP 09/27/17 05:38 Sodium 135 L Potassium 3.2 L Chloride 105 Carbon Dioxide 18 L BUN 9 Creatinine 0.57 L Glucose 129 H Calcium 8.4 L - ABG Interpretation ABG results: PT/INR, D-dimer PT 12.9 Seconds (9.4-12.1) H 09/25/17 20:20 - Impressions Impressions Cholangiogram,Operative 09/27/17 10:54 IMPRESSION: Normal intraoperative cholangiogram during cholecystectomy. D/ / Otto Grider MD / Otto Grider MD Interpreting Provider: Otto Grider MD Consult Discharge Plan - Plan Referrals: NONE,PCP [Primary Care Provider] -
[2017-09-27] MEDS: Ringers Solution, Lactated 1,000 ML IVC SCH (17:21)
[2017-09-27] MEDS: *HR* OxyCODONE Immed Rel 5 MG TABLET PO PRN ×2 (17:21→23:13)
[2017-09-27] MEDS: Acetaminophen 325 MG TABLET PO PRN (21:49)
[2017-09-27] MEDS ORDERED: *HR* OxyCODONE Immed Rel 5 MG TABLET PO ONE (23:56)
[2017-09-28] MEDS ORDERED: *HR* Metoprolol 5 MG/5 ML VIAL IVP ONE (00:15)
[2017-09-28] MEDS: Ringers Solution, Lactated 1,000 ML IVC SCH (05:11)
[2017-09-28] MEDS: *HR* OxyCODONE Immed Rel 5 MG TABLET PO PRN (05:57)
[2017-09-28 07:03] LABS: Basophils % 0.2 %; Hemoglobin 12.5 g/dL (11.5-15.4); Immature Granulocytes % 1.4 % (0-4); Lymphocytes # 0.9 K/mcL (0.6-4.6); Lymphocytes % 5.8 %; Mean Corpuscular HGB Conc 33.8 g/dL (31.6-35.5); Mean Corpuscular Hemoglobin 29.3 pg (28.0-33.3); Mean Corpuscular Volume 86.9 fL (83.0-100.0); Mean Platelet Volume 10.7 fL (9.4-12.4); Monocytes # 1.4 K/mcL (0.0-1.3); Neutrophils # 13.4 K/mcL (1.6-8.9); Platelet Count 144 K/mcL (140-400); Red Blood Count 4.26 M/mcL (3.82-4.97); Red Cell Distribution Width 13.6 % (11.5-14.5); Segmented Neutrophils % 83.6 %
[2017-09-28 07:20] LABS: Alanine Aminotransferase 23 Units/L (7-52); Alkaline Phosphatase 135 Units/L (34-104); Aspartate Amino Transferase 11 Units/L (13-39); BUN/Creatinine Ratio 12 (6-26); Bilirubin,Total 0.9 mg/dL (0.3-1.0); Blood Urea Nitrogen 8 mg/dL (8-23); Calcium 8.8 mg/dL (8.6-10.3); Carbon Dioxide 23 mEq/L (23-29); Chloride 100 mEq/L (98-107); Globulin 3.1 g/dL (2.4-3.5); Glucose 168 mg/dL (70-105); Osmolality,Calculated 278 (280-300); Potassium 3.6 mEq/L (3.5-5.1); Sodium 133 mEq/L (136-145); Total Protein 6.1 g/dL (6.4-8.9); eGFR For African Americans > 60 (> 60); eGFR For Non-African Americans > 60 (> 60)
--- NOTE | 2017-09-28 11:34 | Internal Med Progress Note ---
Date of Encounter: 09/28/17 Time of Encounter: 11:31 - Assessment and plan (1) Acute cholecystitis Current Visit: Yes Status: Acute Assessment and plan: Presented with epigastric pain, abdominal bloating, Nausea with bilious vomiting CT abdomen and pelvis reveals multiple gallstones. Mild gallbladder wall thickening and pericholecystic edema suspicious for cholecystitis Dr Hinojosa seeing in consultation- underwent cholecystectomy yesterday; operative pathology pending Doing well postoperatively, abdomen soft, and mildly tender, nonacute. Laparoscopic sites clean dry and intact Lungs CTA AP and L Denies nausea or vomiting, tolerating clear liquid diet Continue current pain medication regimen and antiemetics PRN Continue lr Patient out of bed ad liz (2) Tachycardia Current Visit: Yes Status: Resolved Assessment and plan: Interim episodes of tachycardia since admission. Review of telemetry shows heart rate as high as 160s. Having intermittent brief episodes of atrial tachycardia. Patient is also noted to have some hypertension. Starting 12.5 mg metoprolol twice a day, remain on telemetry, closely monitored hemodynamic status (3) Hyponatremia Current Visit: Yes Status: Acute Assessment and plan: Hyponatremia continues, stable, continue to monitor daily labs. Patient on and tolerating clear liquid diet (4) DVT prophylaxis Current Visit: Yes Status: Acute Assessment and plan: continue Heparin subcutaneous (5) UTI (urinary tract infection) Current Visit: Yes Status: Acute Assessment and plan: UA shows moderate leukocyte esterase and moderate squamous epithelial cells Urine culture mixed results Clinically patient improving Monitor daily labs Qualifiers: Urinary tract infection type: site unspecified Hematuria presence: without hematuria Qualified Code(s): N39.0 - Urinary tract infection, site not specified - Time Spent With Patient Total time spent is greater than 50% in coordination of care (as documented) at patient's floor/unit and/or counseling patient: - Subjective Interval history: Patient seen and examined at bedside today. Overnight. Denies any nausea/ vomiting, tolerating clear liquid diet. He reports that she has not had a bowel movement but is continuing to have flatus - Constitutional Vitals: Temp Pulse Resp BP Pulse Ox 98.1 F 74 16 134/84 92 09/28/17 07:17 09/28/17 07:17 09/28/17 07:17 09/28/17 07:17 09/28/17 07:17 General appearance: Present: A&O X 3, no acute distress - Head Head exam: Present: atraumatic, normocephalic - Eye Eye exam: Present: PERRL, conjuntiva pink, sclera anicteric Pupils: Present: PERRL - Neck Neck exam general surgery: Present: supple, trachea midline. Absent: lymphadenopathy - Respiratory Respiratory exam: Present: CTAB. Absent: accessory muscle use, rales, rhonchi, wheezes - Cardiovascular Cardiovascular exam: Present: RRR, +S1, +S2. Absent: diastolic murmur, gallop, rubs, systolic murmur - GI/Abdominal GI/Abdominal exam: Present: normal bowel sounds, soft, no peritoneal signs. Absent: distended, tenderness Additional comments: Mild diffuse abdominal tenderness, laparoscopic incisions on the abdomen with approximated, no drainage - Extremities Exam Extremities exam: Present: warm, radial pulses palpable and symmetrical. Absent : calf tenderness, cyanotic, pedal edema - Neurological Exam Neurological exam: Present: CN II-XII intact, oriented X3, no focal deficits. Absent: pronater drift, facial droop, speech deficit - Skin Skin exam: Present: dry, intact Internal Medicine: Result - Labs CBC & Chem 7: 09/28/17 06:31 09/28/17 06:31 Labs: Short CBC 09/28/17 Range/Units 06:31 WBC 16.1 H (4.3-11.1) K/mcL Hgb 12.5 (11.5-15.4) g/dL Hct 37.0 (35.3-44.9) % Plt Count 144 (140-400) K/mcL Neutrophils # 13.4 H (1.6-8.9) K/mcL BMP 09/28/17 06:31 Sodium 133 L Potassium 3.6 Chloride 100 Carbon Dioxide 23 BUN 8 Creatinine 0.65 Glucose 168 H Calcium 8.8 Liver Function 09/28/17 Range/Units 06:31 Total Bilirubin 0.9 (0.3-1.0) mg/dL AST 11 L (13-39) Units/L ALT 23 (7-52) Units/L Alkaline Phosphatase 135 H (34-104) Units/L Albumin 3.0 L (3.5-5.7) g/dL - ABG Interpretation ABG results: PT/INR, D-dimer PT 12.9 Seconds (9.4-12.1) H 09/25/17 20:20 - Impressions Impressions Cholangiogram,Operative 09/27/17 10:54 IMPRESSION: Normal intraoperative cholangiogram during cholecystectomy. D/ / Otto Grider MD / Otto Grider MD Interpreting Provider: Otto Grider MD Consult Discharge Plan - Plan Referrals: NONE,PCP [Primary Care Provider] -
--- NOTE | 2017-09-28 12:09 | General Surgery Progress Note ---
Date of Encounter: 09/28/17 Time of Encounter: 12:08 Subjective Patient reports: feels better, tolerating liquids well Narrative: General Surgery POD #1 Patient feeling better; last upper abdominal pain with removal of gallbladder. Transient right shoulder pain, resolved this morning No nausea or vomiting; tolerating clear liquids. Maximum temperature 99.4, pulse 74-95; heart rate remains variable consistent with previous cardiology assessment of multifocal atrial tachycardia Lungs: Clear bilaterally; no obvious abdominal pain on deep inspiration Abdomen: Soft, minimally tender along the costal margin (port sites). Active bowel sounds. No obvious intra-abdominal masses. No rebound Port sites intact, clean and dry. Laboratories: White count 16.1 (previously 21.5); hemoglobin 12.5/hematocrit 37.0. Platelet count 144,000; neutrophils 13.4 (previously 18.9) Sodium 133, potassium 3.6, BUN 8, creatinine 0.65. Bilirubin 0.9, AST 11, ALT 23, alkaline phosphatase 135 Operative pathology: Pending Impression: POD #1 - status post laparoscopic cholecystectomy, intraoperative cholangiogram for acute gangrenous cholecystitis, cholelithiasis Acceptable postoperative status Continued tachycardia most likely related to multifocal atrial tachycardia. Management per primary service/cardiology. Plan: Regular diet Fleet enema (at the family's insistence) Encourage activity out of bed. Encourage incentive spirometry, deep breathing and coughing. Objective Vital Signs - Last 8 Hours Temp Pulse Resp BP Pulse Ox 09/28/17 11:40 99.4 F 95 16 143/85 96 09/28/17 07:17 98.1 F 74 16 134/84 92 Intake and Output 09/27/17 09/28/17 09/28/17 23:59 07:59 15:59 Intake Total 350 / 350 1000 / 1000 Output Total 200 / 200 Balance 150 / 150 1000 / 1000 Intake: IV Fluids 1000 / 1000 Lactated Ringers 1,000 ML @ 80 1000 / 1000 mls/hr IVC .[id number] Rx#: [id number] Oral 350 / 350 Output: Urine 200 / 200 Other: # Voids 1 Weight 75.5 kg Patient Weight 09/28/17 23:59 Weight 75.5 kg - Labs 09/28/17 06:31 09/28/17 06:31 Diabetes panel 09/28/17 Range/Units 06:31 Sodium 133 L (136-145) mEq/L Potassium 3.6 (3.5-5.1) mEq/L Chloride 100 (98-107) mEq/L Carbon Dioxide 23 (23-29) mEq/L BUN 8 (8-23) mg/dL Creatinine 0.65 (0.60-1.20) mg/dL Glucose 168 H (70-105) mg/dL Calcium 8.8 (8.6-10.3) mg/dL AST 11 L (13-39) Units/L ALT 23 (7-52) Units/L Alkaline Phosphatase 135 H (34-104) Units/L Albumin 3.0 L (3.5-5.7) g/dL Calcium panel 09/28/17 Range/Units 06:31 Calcium 8.8 (8.6-10.3) mg/dL Albumin 3.0 L (3.5-5.7) g/dL Pituitary panel 09/28/17 Range/Units 06:31 Sodium 133 L (136-145) mEq/L Potassium 3.6 (3.5-5.1) mEq/L Chloride 100 (98-107) mEq/L Carbon Dioxide 23 (23-29) mEq/L BUN 8 (8-23) mg/dL Creatinine 0.65 (0.60-1.20) mg/dL Glucose 168 H (70-105) mg/dL Calcium 8.8 (8.6-10.3) mg/dL Adrenal panel 09/28/17 Range/Units 06:31 Sodium 133 L (136-145) mEq/L Potassium 3.6 (3.5-5.1) mEq/L Chloride 100 (98-107) mEq/L Carbon Dioxide 23 (23-29) mEq/L BUN 8 (8-23) mg/dL Creatinine 0.65 (0.60-1.20) mg/dL Glucose 168 H (70-105) mg/dL Calcium 8.8 (8.6-10.3) mg/dL Total Bilirubin 0.9 (0.3-1.0) mg/dL AST 11 L (13-39) Units/L ALT 23 (7-52) Units/L Alkaline Phosphatase 135 H (34-104) Units/L Albumin 3.0 L (3.5-5.7) g/dL Consult Discharge Plan - Plan Referrals: NONE,PCP [Primary Care Provider] -
[2017-09-28] MEDS: Acetaminophen 325 MG TABLET PO PRN (17:55)
[2017-09-29 06:07] LABS: Basophils # 0.1 K/mcL (0.0-0.2); Basophils % 0.3 %; Eosinophils # 0.1 K/mcL (0.0-0.6); Eosinophils % 0.4 %; Hematocrit 33.7 % (35.3-44.9); Hemoglobin 11.4 g/dL (11.5-15.4); Lymphocytes # 1.9 K/mcL (0.6-4.6); Lymphocytes % 12.1 %; Mean Corpuscular HGB Conc 33.8 g/dL (31.6-35.5); Mean Corpuscular Volume 85.8 fL (83.0-100.0); Mean Platelet Volume 10.6 fL (9.4-12.4); Monocytes # 1.6 K/mcL (0.0-1.3); Monocytes % 10.3 %; Neutrophils # 11.3 K/mcL (1.6-8.9); Platelet Count 150 K/mcL (140-400); Red Blood Count 3.93 M/mcL (3.82-4.97); Red Cell Distribution Width 13.6 % (11.5-14.5); Segmented Neutrophils % 73.9 %
[2017-09-29 06:23] LABS: BUN/Creatinine Ratio 15 (6-26); Blood Urea Nitrogen 10 mg/dL (8-23); Calcium 8.3 mg/dL (8.6-10.3); Carbon Dioxide 22 mEq/L (23-29); Chloride 103 mEq/L (98-107); Glucose 125 mg/dL (70-105); Osmolality,Calculated 277 (280-300); Potassium 3.8 mEq/L (3.5-5.1); Sodium 133 mEq/L (136-145); eGFR For African Americans > 60 (> 60); eGFR For Non-African Americans > 60 (> 60)
--- NOTE | 2017-09-29 09:26 | Internal Med Progress Note ---
Date of Encounter: 09/29/17 Time of Encounter: 09:24 - Assessment and plan (1) Acute cholecystitis Current Visit: Yes Status: Acute Assessment and plan: Diagnosis of acute cholecystitis S/P cholecystectomy Postoperatively, patient doing well Abdomen remains soft, mildly tender to palpation, nonacute Laparoscopic sites clean dry and intact Active bowel sounds throughout Continue current pain medication regimen and antiemetics Patient out of bed ad liz Consider discharge this afternoon if heart rate remained stable and if surgery agrees (2) Tachycardia Current Visit: Yes Status: Resolved Assessment and plan: Continues to have interimttent episodes of tachycardia Appears to be multifocal atrial tachycardia Heart rate, S1, S2, irregular Metoprolol 25 mg twice a day started Yesterday evening patient was placed on 30 mg by mouth Cardizem every 6 hours HR improving but continues to have intermittent episodes of tachycardia Review of telemetry reveals 2 events since starting oral Cardizem with HR as high as 150 Increase Cardizem dose to 180 mg Cardizem CD by mouth Closely monitor Should her heart rate stabilized patient may restart up for discharge this afternoon Remains clinically stable (3) Hyponatremia Current Visit: Yes Status: Acute Assessment and plan: Hyponatremia persists but stable continue to monitor daily labs Patient on regular diet, tolerating (4) UTI (urinary tract infection) Current Visit: Yes Status: Acute Assessment and plan: UA shows moderate leukocyte esterase and moderate squamous epithelial cells Urine culture mixed results Clinically patient improving Monitor daily labs; WBC improving 15.4 today Qualifiers: Qualified Code(s): N39.0 - Urinary tract infection, site not specified (5) DVT prophylaxis Current Visit: Yes Status: Acute Assessment and plan: continue Heparin subcutaneous 09/29/17 - Time Spent With Patient Total time spent is greater than 50% in coordination of care (as documented) at patient's floor/unit and/or counseling patient: 25 - 35 minutes - Subjective Interval history: Patient seen and examined at bedside today. No acute changes overnight. Stable S/P cholecystectomy .Denies any nausea/vomiting, tolerating regular diet. Has had 1 bowel movement following enema yesterday. - Constitutional Vitals: Temp Pulse Resp BP Pulse Ox 99.1 F 103 16 103/66 93 09/29/17 06:49 09/29/17 06:49 09/29/17 06:49 09/29/17 06:49 09/29/17 06:49 General appearance: Present: A&O X 3, no acute distress - Head Head exam: Present: atraumatic, normocephalic - Eye Eye exam: Present: PERRL, conjuntiva pink, sclera anicteric Pupils: Present: PERRL - Neck Neck exam general surgery: Present: supple, trachea midline. Absent: lymphadenopathy - Respiratory Respiratory exam: Present: CTAB. Absent: accessory muscle use, rales, rhonchi, wheezes - Cardiovascular Cardiovascular exam: Present: RRR, +S1, +S2. Absent: diastolic murmur, gallop, rubs, systolic murmur - GI/Abdominal GI/Abdominal exam: Present: normal bowel sounds, soft, no peritoneal signs. Absent: distended, tenderness Additional comments: Laparoscopic incisions in the abdomen was approximated without drainage - Extremities Exam Extremities exam: Present: warm, radial pulses palpable and symmetrical. Absent : calf tenderness, cyanotic, pedal edema - Neurological Exam Neurological exam: Present: CN II-XII intact, oriented X3, no focal deficits. Absent: pronater drift, facial droop, speech deficit - Skin Skin exam: Present: dry, intact Internal Medicine: Result - Labs CBC & Chem 7: 09/29/17 05:41 09/29/17 05:41 Labs: Short CBC 09/29/17 Range/Units 05:41 WBC 15.4 H (4.3-11.1) K/mcL Hgb 11.4 L (11.5-15.4) g/dL Hct 33.7 L (35.3-44.9) % Plt Count 150 (140-400) K/mcL Neutrophils # 11.3 H (1.6-8.9) K/mcL BMP 09/29/17 05:41 Sodium 133 L Potassium 3.8 Chloride 103 Carbon Dioxide 22 L BUN 10 Creatinine 0.68 Glucose 125 H Calcium 8.3 L Liver Function 09/29/17 Range/Units 05:41 Alkaline Phosphatase 133 H (34-104) Units/L - ABG Interpretation ABG results: PT/INR, D-dimer PT 12.9 Seconds (9.4-12.1) H 09/25/17 20:20 Consult Discharge Plan - Plan Referrals: Edna Foy HEARING CARE PRACTITIONER [Partnered Physician] - 10/04/17 10:30 am NONE,PCP [Non-Partnered Physician] -
[2017-09-29] MEDS ORDERED: Diltiazem CD (24hr) 180 MG CAPSULE PO SCH (09:30)
[2017-09-29 15:05] VITALS: BP 117/70
--- NOTE | 2017-09-29 15:56 | General Surgery Progress Note ---
Date of Encounter: 09/29/17 Time of Encounter: 15:50 Subjective Patient reports: feels better, tolerating a regular diet Narrative: General Surgery POD #2 Patient feeling well, denies any abdominal pain. Patient is tolerating a regular diet, no nausea or vomiting. Maximum temperature 99.2, pulse currently 79 but ranging 65-103. There was a reported episode of tachycardia during the night to approximately 150. Rate is currently controlled with beta blockers and Cardizem. Lungs: Clear Abdomen: Soft, nontender. Active bowel sounds. Port sites clean and dry. Operative pathology: Acute cholecystitis superimposed on chronic cholecystitis with extensive hemorrhage and reactive/inflammatory mucosal epithelial atypia. Cholelithiasis. The pathologic findings are consistent with the operative findings. Impression: Postoperative day #2, status post laparoscopic cholecystectomy, intraoperative cholangiogram. Doing well postop Discussed with Justo Putnam CNP, discharge planned today after verification of cardiac rhythm control Recommendations post cholecystectomy Regular diet as tolerated Activity as tolerated; lifting limited less than 20 pounds Patient may shower, wash incisions with soap and water Outpatient surgical follow-up, , 10/05/17. Patient may call office Monday a.m. to make this appointment. Tylenol, ibuprofen, Motrin, Advil, Aleve, etc. as needed for pain Objective Vital Signs - Last 8 Hours Temp Pulse Resp BP Pulse Ox 09/29/17 14:56 98.7 F 79 16 117/70 94 09/29/17 11:08 99.2 F 65 16 101/58 91 Intake and Output 09/28/17 09/29/17 09/29/17 23:59 07:59 15:59 Other: Meal Breakfast Percent of Meal Consumed 30% # Voids 1 1 - Labs 09/29/17 05:41 09/29/17 05:41 Diabetes panel 09/29/17 09/29/17 Range/Units 05:41 05:41 Sodium 133 L (136-145) mEq/L Potassium 3.8 (3.5-5.1) mEq/L Chloride 103 (98-107) mEq/L Carbon Dioxide 22 L (23-29) mEq/L BUN 10 (8-23) mg/dL Creatinine 0.68 (0.60-1.20) mg/dL Glucose 125 H (70-105) mg/dL Calcium 8.3 L (8.6-10.3) mg/dL Alkaline Phosphatase 133 H (34-104) Units/L Calcium panel 09/29/17 Range/Units 05:41 Calcium 8.3 L (8.6-10.3) mg/dL Pituitary panel 09/29/17 Range/Units 05:41 Sodium 133 L (136-145) mEq/L Potassium 3.8 (3.5-5.1) mEq/L Chloride 103 (98-107) mEq/L Carbon Dioxide 22 L (23-29) mEq/L BUN 10 (8-23) mg/dL Creatinine 0.68 (0.60-1.20) mg/dL Glucose 125 H (70-105) mg/dL Calcium 8.3 L (8.6-10.3) mg/dL Adrenal panel 09/29/17 09/29/17 Range/Units 05:41 05:41 Sodium 133 L (136-145) mEq/L Potassium 3.8 (3.5-5.1) mEq/L Chloride 103 (98-107) mEq/L Carbon Dioxide 22 L (23-29) mEq/L BUN 10 (8-23) mg/dL Creatinine 0.68 (0.60-1.20) mg/dL Glucose 125 H (70-105) mg/dL Calcium 8.3 L (8.6-10.3) mg/dL Alkaline Phosphatase 133 H (34-104) Units/L Consult Discharge Plan - Plan Referrals: Edna oFy ELECTRONICS COMPUTER MECHANIC [Partnered Physician] - 10/04/17 10:30 am NONE,PCP [Non-Partnered Physician] -
--- NOTE | 2017-09-29 15:59 | Discharge Summary ---
- NOTES TO OUTPATIENT PROVIDER Notes to Outpatient Provider: The patient admitted with sepsis 2/2 cholecystitis. He was also found to have tachycardia, with EKG revealing multifocal atrial tachycardia. Cholecystectomy completed, uneventful hospital course, patient is stable s/p cholecystectomy. Patient was placed on metoprolol and Cardizem CD for tachyarrhythmia. Has not been on cardiac medications prior. Would benefit from outpatient referral to cardiology for Holter monitor placement. Orders not resulted at time of discharge: Pending orders 09/27/17 04:44 EKG [ECG 12 lead ECG] [ECG] Routine 09/27/17 23:54 EKG [ECG 12 lead ECG] [ECG] Stat 09/30/17 04:00 Basic Metabolic Panel AM 0400 Complete Blood Count [HEME] AM 0400 10/01/17 04:00 Basic Metabolic Panel AM 0400 Complete Blood Count [HEME] AM 0400 Date of Encounter: 09/29/17 Time of Encounter: 15:56 - Discharge Diagnosis (1) Acute cholecystitis Priority: Primary Status: Acute Assessment and Plan: Diagnosis of acute cholecystitis S/P cholecystectomy Postoperatively, patient doing well Abdomen remains soft, mildly tender to palpation, nonacute Laparoscopic sites clean dry and intact Active bowel sounds throughout Patient out of bed ad liz Clean sites as directed per surgeon Instructed to follow-up with PCP within 1 week of discharge (2) Tachycardia Priority: Secondary Status: Resolved Assessment and Plan: Continues to have interimttent episodes of tachycardia Appears to be multifocal atrial tachycardia Heart rate, S1, S2, irregular Metoprolol 25 mg twice a day started Cardizem dose increased to 180 mg Cardizem CD by mouth; HR improved, rate last 8 hours avg 70-80's No additional tachycardia events Remains hemodynamically stable D/W patient and family to follow-up with PCP within 1 week of discharge for further evaluation of heart rate and rhythm. Patient will benefit from a follow -up with cardiology possible Holter monitor placement. Defer to primary care to set up Should be noted that the patient does not regularly follow with healthcare providers. It is unclear whether or not she has had this tachycardia for some time. (3) Hyponatremia Priority: Secondary Status: Acute Assessment and Plan: Hyponatremia persists but stable continue to monitor daily labs Patient on regular diet, tolerating Hospital course: Ms. Eddy is a 82 year old female Please see assessment and plan for hospital course Discharge discussed with: patient, family, nurse, case management, alliances consultant - Time Spent with Patient Total time spent providing and/or coordinating discharge services: Less than 30 minutes - Discharge Medications Prescriptions: Diltiazem CD (24hr) [Cardizem CD] 180 mg PO DAILY 30 Days #30 cap.er.24h Metoprolol [Lopressor] 12.5 mg PO BID 30 Days #60 tablet Home Medications: Diltiazem CD (24hr) [Cardizem CD] 180 mg PO DAILY 30 Days #30 cap.er.24h [Rx] Metoprolol [Lopressor] 12.5 mg PO BID 30 Days #60 tablet 09/29/17 [Rx] Allergies/Adverse Reactions: 3 Allergy/AdvReac Type Severity Reaction Status Date / Time codeine AdvReac Chest Pain Verified 11/16/16 08:51 Date of admission: 09/25/17 23:59 Primary care physician: Patrick Rosario Discharging clinician: Justo Putnam Anticipated date of discharge: 09/29/17 - Constitutional Vitals: Temp Pulse Resp BP Pulse Ox 98.7 F 79 16 117/70 94 09/29/17 14:56 09/29/17 14:56 09/29/17 14:56 09/29/17 14:56 09/29/17 14:56 General appearance: Present: A&O X 3, no acute distress - Head Head exam: Present: atraumatic, normocephalic - Eye Eye exam: Present: PERRL, conjuntiva pink, sclera anicteric Pupils: Present: PERRL - Neck Neck exam general surgery: Present: supple, trachea midline. Absent: lymphadenopathy - Respiratory Respiratory exam: Present: CTAB. Absent: accessory muscle use, rales, rhonchi, wheezes - Cardiovascular Cardiovascular exam: Present: RRR, +S1, +S2. Absent: diastolic murmur, gallop, rubs, systolic murmur - GI/Abdominal GI/Abdominal exam: Present: normal bowel sounds, soft, no peritoneal signs. Absent: distended, tenderness - Extremities Exam Extremities exam: Present: warm, radial pulses palpable and symmetrical. Absent : calf tenderness, cyanotic, pedal edema - Neurological Exam Neurological exam: Present: CN II-XII intact, oriented X3, no focal deficits. Absent: pronater drift, facial droop, speech deficit - Skin Skin exam: Present: dry, intact - Patient Status Disposition: Home, Self-Care Condition: Fair Functional capacity at discharge: independent ambulation Overall status at discharge: patient is progressing back to baseline - Discharge Instructions Follow Up With: Edna Foy CNP [Partnered Physician] - 10/04/17 10:30 am NONE,PCP [Non-Partnered Physician] - - Diet and Activity Activity: increase activity as tolerated, resume usual activities as tolerated Diet: advance to your usual diet
--- NOTE | 2017-10-01 20:05 | Electrocardiograph Report ---
[place] [id number] Test Date: 2017-09-27 Pat Name: Marika Eddy Department: 113 Room: 3B44 Gender: F Solar Sales Advisor: : [id number] Requested By: Phuong Moe Order Number: [id number] Reading MD: Thompson Ayoub Measurements Intervals [place] Rate: 120 P: 41 NC: 125 QRS: 1 QRSD: 91 T: -11 QT: 327 QTc: 398 Interpretive Statements SINUS TACHYCARDIA WITH FREQUENT SUPRAVENTRICULAR PREMATURE COMPLEXES ABNORMAL RHYTHM ECG Electronically Signed On 10-01-2017 20:04:06 EDT by Thompson Ayoub
== END 2017-09-29 17:18 | disposition home or self-care (01) | DRG 854 ==
LOC: EMEROO 18:58 → 3ANU 18:58 → 3BNU 23:58
PROVIDERS: ADMIT Internal Medicine; ATTEND Internal Medicine